=== PATIENT | female | born 1945 | race Caucasian/White ===

== ENCOUNTER 2023-03-12 11:54 | Outpatient (OUT) | payer MEDICARE, SELFPAY ==
--- NOTE | 2023-03-12 13:56 | PM.CN ---
Consult Note: HPI Data of Consult Patient: new to practice Consult date: 03/12/23 Requesting Physician: Boyd Subramanian MD Primary Care Provider: Non-Staff Physician, Consult Narrative Reason for consult: Neck, low back and bilateral leg pain Narrative: this is a pleasant 78-year-old female who presents for evaluation. She notes increasing pain that radiates from her low back into her bilateral lower extremities, which causes weakness.she also notes pain throughout her axial cervical spine. She has engaged in physical therapy, which she completed two months ago. This was a six-week course of physical therapy, but this did not provide lasting relief. She's had a few falls recently. She has had a number of imaging studies done recently, and these were reviewed today. Her lumbar imaging is significant for multiple levels of stenosis, worst at L4-L5 and L5-S1. There is also multilevel facet arthropathy noted. She utilizes metaxalone, which provides mild relief. She otherwise denies adverse medications are Effexor loss of bowel or bladder control. cc:: CC: Boyd Subramanian MD Review of Systems ROS Status of ROS 10 or more systems reviewed and unremarkable except as noted in history and below Meds Home Medications and Allergies Allergies Allergy/AdvReac Type Severity Reaction Status Date / Time chlordiazepoxide Allergy Verified 03/12/23 13:52 [From Librax (with clidinium)] clidinium Allergy Verified 03/12/23 13:52 [From Librax (with clidinium)] Exam Constitutional Common normals: no apparent distress, oriented x3 and healthy appearing Respiratory Common normals: normal respiratory effort Effort & inspection: able to speak in complete sentences Back & Pelvis Other: tenderness to palpation throughout the lumbar spine and paraspinal musculature. Pain is elicited with flexion, extension, and lateral rotation of the lumbar spine. Facet loading maneuvers are positive bilaterally. Strength is noted to be unremarkable throughout the bilateral lower extremities except for decreased strength rated at 4/5 in the bilateral quadriceps femoris, anterior tibialis. Sensation noted to be unremarkable throughout the bilateral lower extremities except for dysesthesia and the bilateral L4, L5 dermatomal distributions. Coordination remains intact. Gait remains nonantalgic. Extremity Common normals: normal to inspection Neuro Common normals: oriented x3, CN's II-XII intact bilaterally and no focal motor deficits Psych Common normals: mental status grossly normal and cooperative Assessment and Plan Assessment and Plan (1) Lumbar spondylosis: (2) Lumbar stenosis with neurogenic claudication: (3) Cervical spondylosis: (4) Migraine: Qualifiers: Migraine type: without aura Status migrainosus presence: with status migrainosus Intractability: not intractable Qualified Code(s): G43.001 - Migraine without aura, not intractable, with status migrainosus Plan this is a pleasant 78-year-old female who presents for evaluation. She has failed physical and medical modalities, as listed above. Her primary complaint today is her low back and bilateral lower extremity issues. Her imaging was reviewed, as noted above. Given her symptomatology and imaging findings, it is prudent to attempt bilateral L5-S1 transfemoral epidural steroid injections to provide analgesia. Depending on her response, she may even benefit from bilateral L4-L5 transforaminal epidural steroid injections. She is in agreement with this plan. I will like her to also undergo x-rays of her lumbar spine and sacrum. She expressed understanding. Medications were reviewed, and I agreed to prescribe Fioricet five tablets for her migraine headaches. she does have a known aneurysm that is being followed by neurology, and they have expressed to her that this is not the cause of her headaches. She expressed understanding. She will follow up after the procedure is completed.
== END 2023-03-12 11:55 | disposition home or self-care (01) ==
PROVIDERS: Visit Provider Anesthesiology
DX: M48.062 Spinal stenosis, lumbar region with neurogenic claudication (principal); M47.816 Spondylosis without myelopathy or radiculopathy, lumbar region; M47.812 Spondylosis without myelopathy or radiculopathy, cervical region; G43.909 Migraine, unspecified, not intractable, without status migrainosus
CPT/HCPCS: 72110; 72220; G0463

== ENCOUNTER 2023-03-12 13:10 | Outpatient (OUT) | payer MEDICARE, SELFPAY ==
--- NOTE | 2023-03-12 13:21 | XR_ITS ---
[place] [address] Patient Name: HARRIET JEONG MRN: [id number] date: 1945 Sex: F Assigned Patient Location: [facility] Current Patient Location: [facility] Accession/Order Number: [id number] Exam Date: 03/12/2023 13:35 Report Date: 03/13/2023 09:24 At the request of: SONALI GIEDRAITIS Procedure: XR lumbar spine min 4V EXAM: XR lumbar spine min 4V HISTORY: Lumbar stenosis COMPARISON: None TECHNIQUE: 4 views Findings/impression: Severe rotational S-shaped scoliosis of the thoracolumbar spine. Maintained vertebral body heights. Multilevel endplate degenerative changes, disc disease, and facet arthropathy, more prominent lower aspect. Scattered calcified atherosclerotic disease of aorta. Electronically authenticated by: GERALD LAWLER Date: 03/13/2023 09:24
--- NOTE | 2023-03-12 13:29 | XR_ITS ---
The [address] [address] Patient Name: HARRIET JEONG MRN: [id number] date: 1945 Sex: F Assigned Patient Location: [facility] Current Patient Location: Accession/Order Number: [id number] Exam Date: 03/12/2023 13:35 Report Date: 03/13/2023 09:17 At the request of: ANDRIUS GIEDRAITIS Procedure: XR sacrum coccyx min 2V EXAM: XR sacrum coccyx min 2V HISTORY: Lumbar stenosis COMPARISON: Relevant priors reviewed including CT of the abdomen and pelvis 08/18/2022 TECHNIQUE: 2 views of the sacrum and coccyx. FINDINGS: No appreciable sacral or coccygeal fracture. Partially visualized levocurvature of the lower lumbar spine, with multilevel degenerative change. Sacrococcygeal spinal alignment is within normal limits. Sacroiliac joints are grossly symmetric. Vascular calcifications project over the pelvis. XR/XR sacrum coccyx min 2V IMPRESSION: 1. No appreciable sacral or coccygeal fracture. Electronically authenticated by: GUI RAMOS Date: 03/13/2023 09:17
== END 2023-03-12 13:11 | disposition home or self-care (01) ==
LOC: RAD 13:14
DX: M48.061 Spinal stenosis, lumbar region without neurogenic claudication (principal)
CPT/HCPCS: 72110; 72220

== ENCOUNTER 2023-05-14 13:35 | Outpatient (OUT) | payer MEDICARE, SELFPAY ==
--- NOTE | 2023-05-14 14:18 | PM.CN ---
Consult Note: HPI Data of Consult Patient: known to practice within the last 3 years Consult date: 05/14/23 Requesting Physician: Boyd Subramanian MD Primary Care Provider: Non-Staff Physician, Consult Narrative Reason for consult: low back, bilateral leg pain Narrative: 78yof who presents for assessment. Continues to have low back pain with radiation into bilateral lower extremities. Previously had discussed TFESIs, but patient postponed due to a lot of life events happening. Discussing her pains today. Has had good relief of headaches with Fioricet, which she takes on occasion. denies adverse med side effects. cc:: CC: Boyd Subramanian MD Review of Systems ROS Status of ROS 10 or more systems reviewed and unremarkable except as noted in history and below Meds Home Medications and Allergies Home Medications Medication Instructions Recorded Confirmed Type ascorbic acid (vitamin C) 500 mg 500 mg PO BID 03/12/23 03/12/23 History tablet,extended release (C Complex) aspirin 81 mg capsule 81 mg PO DAILY 03/12/23 03/12/23 History carvedilol 6.25 mg tablet 6.25 mg PO BID 03/12/23 03/12/23 History cholecalciferol (vitamin D3) 50 2,000 unit PO DAILY 03/12/23 03/12/23 History mcg (2,000 unit) capsule coenzyme Q10 100 mg capsule (Co 100 mg PO DAILY 03/12/23 03/12/23 History Q-10) furosemide 20 mg tablet 20 mg PO DAILY 03/12/23 03/12/23 History levothyroxine 100 mcg capsule 100 mcg PO DAILY 03/12/23 03/12/23 History lidocaine 5 % topical 2 patch topical Q24H 03/12/23 03/12/23 History patch-adhesive silicone combo pack lisinopril 20 mg tablet 20 mg PO BID 03/12/23 03/12/23 History magnesium 200 mg tablet 400 mg PO DAILY 03/12/23 03/12/23 History metaxalone 800 mg tablet 800 mg PO BID PRN muscle pain 03/12/23 03/12/23 History oxybutynin chloride 10 mg 10 mg PO DAILY 03/12/23 03/12/23 History tablet,extended release 24 hr vit C 250 mg-vit E 90 mg-zinc 40 1 tab PO BID 03/12/23 03/12/23 History mg-copper 1 [id number] capsule (PreserVision AREDS-2) zinc 50 mg tablet 50 mg PO DAILY 03/12/23 03/12/23 History Allergies Allergy/AdvReac Type Severity Reaction Status Date / Time chlordiazepoxide Allergy Verified 03/12/23 13:52 [From Librax (with clidinium)] clidinium Allergy Verified 03/12/23 13:52 [From Librax (with clidinium)] Exam Narrative Exam Narrative: Psych-alert and oriented x 3. Attentive and appropriate, constitutionally normal, displays normal mood and affect per situation. There are no obvious deficits in memory, reasoning, or intellect.? Skin-no obvious rashes, bruising, erythema noted to the patient's area of pain.? Extremities- extremities are warm with minimal edema and palpable pulses. Lumbar-tenderness to palpation noted in the lumbar spine and paraspinal musculature. Pain is elicited with flexion, extension, and lateral rotation of the lumbar spine. Range of motion is diminished with these motions. Facet loading maneuvers are positive. Strength-noted to be unremarkable with the exception of decreased strength rated at 4 out of 5 in bilateral quadriceps femoris, anterior tibialis. Sensory-no notable sensory deficits in the bilateral lower extremities to touch or pinprick in all dermatomal distributions with the exception to decreased sensation to the bilateral L3, 4, 5 dermatomal distribution Coordination remains intact.? Gait remains non-antalgic. Assessment and Plan Assessment and Plan (1) Lumbar stenosis with neurogenic claudication: (2) Lumbar spondylosis: (3) Migraine: Qualifiers: Migraine type: without aura Status migrainosus presence: with status migrainosus Intractability: not intractable Qualified Code(s): G43.001 - Migraine without aura, not intractable, with status migrainosus Plan 78yof who presents for assessment. Failed conservative measures, as noted. Discussed that when her life events settle down, would be prudent to proceed with previously discussed injections. She is in agreement and will call to schedule when ready. Medications reviewed. Will refill Skelaxin 800mg and agreed to trial T#3 bid prn. Obtain UDS today. Follow up after procedure or in 3 months.
== END 2023-05-14 13:36 | disposition home or self-care (01) ==
PROVIDERS: Visit Provider Anesthesiology
DX: M47.816 Spondylosis without myelopathy or radiculopathy, lumbar region (principal); M48.062 Spinal stenosis, lumbar region with neurogenic claudication; G43.001 Migraine without aura, not intractable, with status migrainosus
CPT/HCPCS: G0463